=== PATIENT | female | born 1955 | race Caucasian/White ===

== ENCOUNTER 2016-10-24 07:24 | Emergency (ER) | payer OTHER ==
[~2016-10-24] VITALS: Ht 160 cm; Wt 64.7 kg
[2016-10-24 07:28] VITALS: BP 140/82; PULSE 81; RESP 20; TEMP 97.7; O2SAT 100
[2016-10-24 07:51] LABS: BLOOD, URINE NEG (NEG); GLUCOSE,URINE NEG (NEG); KETONE, URINE TRACE mg/dL (NEG); NITRITE,URINE NEG (NEG)
[2016-10-24 07:58] LABS: BACTERIA, URINE OCC /hpf; COMMENT (UR) CULT NOT INDICATED; CULTURE IF INDICATED CULT NOT INDICATED; METHOD OF COLLECTION CLEAN CATCH; MUCUS URINE FEW /lpf (OCC); URINE COLOR YELLOW (YELLW/STRAW); WBC, URINE 0-2 /hpf (0-5)
[2016-10-24] MEDS ORDERED: SODIUM CHLOR 0.9% 1000 ML INJ 1,000 ML IV SCH (07:58)
[2016-10-24] MEDS ORDERED: SODIUM CHLORIDE 0.9% FLUSH 5 ML FLUSH IVF PRN (08:00)
[2016-10-24] MEDS ORDERED: MORPHINE SULFATE 4 MG/ML INJ IV PUSH ONE (08:00)
[2016-10-24] MEDS ORDERED: ONDANSETRON HCL 4 MG/2 ML VIAL IVP ONE (08:00)
--- NOTE | 2016-10-24 08:09 | PD ---
HPI Chief Complaint: Flank/Kidney Pain Time Seen by Provider: 07:49 Travel History International Travel<30 days: No Contact w/Intl Traveler<30days: No Traveled to known affect area: No History of Present Illness HPI Patient is a 61-year-old female who presents to emergency room with complaints of right-sided flank pain for the past 2 days. Reports that she has been having intermittent pains to her right flank, reports that she woke this morning with severe pain to her right flank radiates her her groin. Patient reports that she felt as if she had a urinary tract infection but denies dysuria , hematuria, urinary urgency or frequency. Patient denies fevers or chills. Patient denies any trauma to her flank. Patient denies any history of any kidney stones in the past. Denies constipation or diarrhea. PFSH Past Medical History Medical History: Denies Significant Hx Influenza Vaccination: No ?: Not Past Surgical History Hysterectomy: Yes Family History Family History: Negative Social History Alcohol Use: Yes (RARE) Tobacco Use: No Substance Use: No Allergies-Medications (Allergen,Severity, Reaction): Coded Allergies: Erythromycin (Verified Adverse Reaction, Severe, NAUSEA, 10/24/16) Percocet (Verified Adverse Reaction, Severe, NAUSEA, 10/24/16) Reported Meds & Prescriptions Reported Meds & Active Scripts Active No Active Prescriptions or Reported Medications Review of Systems General / Constitutional: No: Fever Eyes: No: Visual changes HENT: No: Headaches Cardiovascular: No: Chest Pain or Discomfort Respiratory: No: Shortness of Breath Gastrointestinal: Positive: Nausea, Abdominal Pain, No: Vomiting, Diarrhea, Hematemesis, Hematochezia, Constipation Genitourinary: No: Urgency, Frequency, Dysuria, Hematuria, Discharge Musculoskeletal: No: Pain Skin: No Rash Neurologic: No: Weakness Psychiatric: No: Depression Endocrine: No: Polydipsia Hematologic/Lymphatic: No: Easy Bruising Physical Exam Narrative GENERAL: Mild distress, patient uncomfortable on exam SKIN: Warm and dry. HEAD: Atraumatic. Normocephalic. EYES: No injection or drainage. ENT: No nasal bleeding or discharge. Mucous membranes pink and moist. NECK: Trachea midline. No JVD. CARDIOVASCULAR: Regular rate and rhythm. No murmur appreciated. RESPIRATORY: No accessory muscle use. Clear to auscultation. Breath sounds equal bilaterally. GASTROINTESTINAL: Abdomen soft, non-tender, nondistended. Patient with right- sided flank pain MUSCULOSKELETAL: No obvious deformities. No clubbing. No cyanosis. No edema. NEUROLOGICAL: Awake and alert. Normal speech. PSYCHIATRIC: Appropriate mood and affect; insight and judgment normal. Data Data Last Documented VS Vital Signs Date Time Temp Pulse Resp B/P Pulse Ox O2 Delivery O2 Flow Rate FiO2 10/24/16 07:28 97.7 81 20 140/82 100 Orders Urinalysis - C+S If Indicated (10/24/16 07:42) Complete Blood Count With Diff (10/24/16 07:58) Comprehensive Metabolic Panel (10/24/16 07:58) Lipase (10/24/16 07:58) Prothrombin Time / Inr (Pt) (10/24/16 07:58) Act Partial Throm Time (Ptt) (10/24/16 07:58) Ct Abd/Pel W/O Iv Contrast (10/24/16 07:58) Iv Access Insert/Monitor (10/24/16 07:58) Morphine Inj (Morphine Inj) (10/24/16 08:00) Ondansetron Inj (Zofran Inj) (10/24/16 08:00) Sodium Chlor 0.9% 1000 Ml Inj (Ns 1000 M (10/24/16 07:58) Sodium Chloride 0.9% Flush (Ns Flush) (10/24/16 08:00) Ketorolac Inj (Toradol Inj) (10/24/16 09:00) Ceftriaxone Inj (Rocephin Inj) (10/24/16 09:30) Labs Laboratory Tests Test 10/24/16 10/24/16 07:45 08:05 Urine Collection Type CLEAN CATCH Urine Color YELLOW Urine Turbidity CLEAR Urine pH 6.0 Urine Specific [place] 1.023 Urine Protein TRACE mg/dL Urine Glucose (UA) NEG mg/dL Urine Ketones TRACE mg/dL Urine Occult Blood NEG Urine Nitrite NEG Urine Bilirubin NEG Urine Leukocyte Esterase NEG Urine WBC 0-2 /hpf Urine Squamous Epithelial 6-8 /hpf Cells Urine Bacteria OCC /hpf Urine Mucus FEW /lpf Microscopic Urinalysis Comment CULT NOT INDICATED Urine Collection Time 07:45 White Blood Count 13.5 TH/MM3 Red Blood Count 4.64 MIL/MM3 Hemoglobin 14.1 GM/DL Hematocrit 42.0 % Mean Corpuscular Volume 90.6 FL Mean Corpuscular Hemoglobin 30.5 PG Mean Corpuscular Hemoglobin 33.6 % Concent Red Cell Distribution Width 12.3 % Platelet Count 312 TH/MM3 Mean Platelet Volume 7.7 FL Neutrophils (%) (Auto) 82.4 % Lymphocytes (%) (Auto) 12.3 % Monocytes (%) (Auto) 4.7 % Eosinophils (%) (Auto) 0.3 % Basophils (%) (Auto) 0.3 % Neutrophils # (Auto) 11.2 TH/MM3 Lymphocytes # (Auto) 1.7 TH/MM3 Monocytes # (Auto) 0.6 TH/MM3 Eosinophils # (Auto) 0.0 TH/MM3 Basophils # (Auto) 0.0 TH/MM3 CBC Comment DIFF FINAL Differential Comment Prothrombin Time 10.8 SEC Prothromb Time International 1.0 RATIO Ratio Activated Partial 26.5 SEC Thromboplast Time Sodium Level 142 MEQ/L Potassium Level 3.4 MEQ/L Chloride Level 105 MEQ/L Carbon Dioxide Level 22.2 MEQ/L Anion Gap 15 MEQ/L Blood Urea Nitrogen 16 MG/DL Creatinine 0.95 MG/DL Estimat Glomerular Filtration 59 ML/MIN Rate Random Glucose 132 MG/DL Calcium Level 8.9 MG/DL Total Bilirubin 0.6 MG/DL Aspartate Amino Transf 27 U/L (AST/SGOT) Alanine Aminotransferase 33 U/L (ALT/SGPT) Alkaline Phosphatase 68 U/L Total Protein 7.8 GM/DL Albumin 3.8 GM/DL Lipase 115 U/L MDM Medical Decision Making Medical Screen Exam Complete: Yes Emergency Medical Condition: Yes Interpretation(s) Vital Signs Date Time Temp Pulse Resp B/P Pulse Ox O2 Delivery O2 Flow Rate FiO2 10/24/16 07:28 97.7 81 20 140/82 100 Differential Diagnosis Kidney stone, pyelonephritis, cystitis, muscle strain, appendicitis Narrative Course Patient is a 61-year-old female who presents to emergency room with complaints of right-sided flank pain for the past 2 days. Patient reports that flank pain has been intermittent in nature, reports that she woke up this morning with severe pain to her right flank pain to her groin. Reports nausea without any vomiting. Denies fevers or chills. Denies constipation or diarrhea. Denies dysuria, urinary urgency/frequency. Reports that she is having problems getting comfortable, reports that she feels as if she has a urinary tract infection but "I don't have any burning when urinate." Patient uncomfortable at bedside, patient with right-sided flank pain. Discussed with patient that I will place IV, will give IV fluids as well as antinausea medications and pain medications. She has tolerated morphine in the past. CBC, CMP, UA ordered. CT of abdomen and pelvis without contrast ordered for evaluation of possible kidney stone. Patient with right-sided kidney stone, I did give patient a copy of her radiology report. A urine strainer was given to her. Patient will strain her urine and bring her kidney stones were doctor's office. All labs and all studies were reviewed with patient in detail. Patient currently comfortable at this time. Will follow up with urologist and return to ER as needed. Signs and symptoms of when to return to emergency room includes reviewed with patient in detail. Patient thankful for care. Diagnosis Primary Impression: Kidney stone on right side Additional Impression: perinephric stranding Referrals: Titus Malagon MD Patient Instructions: General Instructions, Narcotic given in the ED Additional Instructions: Please strain your urine and bring your kidney stone to your urologist appointment Please call your urologist first thing when you leave the emergency room for earliest follow-up appointment Return to the emergency room if symptoms progress or worsen Please bring your discharge paperwork as well as copies of your studies to your doctor's appointment Return to ER as needed Med/Other Pt SpecificInfo: Prescription(s) given Scripts Levofloxacin (Levaquin)500 Mg Eid728 Mg PO DAILY 5 Days Ref 0 Prov:Greer Oglesby DO 10/24/16 Ibuprofen 600 Mg Tup404 Mg PO Q6H PRN (Pain/Inflammation) #40 TAB Ref 0 Prov:Greer Oglesby DO 10/24/16 Tamsulosin (Flomax)0.4 Mg Cap0.4 Mg PO HS #12 CAP Ref 0 Prov:Greer Oglesby DO 10/24/16 Acetaminophen-Codeine (Tylenol-Codeine #3)300-30 mg Tab1-2 Tab PO Q6H PRN (PAIN ) #20 TAB Ref 0 Prov:Greer Oglesby DO 10/24/16 Greer Oglesby DO Oct 24, 2016 08:09
[2016-10-24 08:21] LABS: AUTOMATED NEUTROPHIL # 11.2 TH/MM3 (1.8-7.7); BASOPHIL % 0.3 % (0.0-2.0); EOSINOPHIL % 0.3 % (0.0-4.0); LYMPH % 12.3 % (9.0-44.0); LYMPHOCYTE # 1.7 TH/MM3 (1.0-4.8); MEAN CELL VOLUME 90.6 FL (80.0-100.0); MEAN CORPUSCULAR HEMOGLOBIN 30.5 PG (27.0-34.0); MEAN CORPUSCULAR HGB CONC 33.6 % (32.0-36.0); MONO % 4.7 % (0.0-8.0); NEUT % 82.4 % (16.0-70.0); PLATELET COUNT 312 TH/MM3 (150-450); RED BLOOD COUNT 4.64 MIL/MM3 (4.00-5.30); RED CELL DISTRIBUTION WIDTH 12.3 % (11.6-17.2); WHITE BLOOD COUNT 13.5 TH/MM3 (4.0-11.0)
[2016-10-24 08:22] LABS: CHLORIDE 105 MEQ/L (98-107); HEMO FLAGS DIFF FINAL; POTASSIUM 3.4 MEQ/L (3.5-5.1); SODIUM (NA) 142 MEQ/L (136-145)
[2016-10-24 08:26] LABS: ANION GAP 15 MEQ/L (5-15); APTT (PATIENT) 26.5 SEC (24.3-30.1); BICARBONATE 22.2 MEQ/L (21.0-32.0); BLOOD UREA NITROGEN 16 MG/DL (7-18); PROTHROMBIN TIME - PATIENT 10.8 SEC (9.8-11.6)
[2016-10-24 08:29] LABS: ALT (GPT) 33 U/L (10-53); AST (GOT) 27 U/L (15-37); GLOMERULAR FILTRATION RATE 59 ML/MIN (>89)
[2016-10-24 08:30] LABS: TOTAL BILIRUBIN ADULT 0.6 MG/DL (0.2-1.0)
[2016-10-24 08:32] LABS: ALKALINE PHOSPHATASE 68 U/L (45-117)
[2016-10-24] MEDS ORDERED: KETOROLAC TROMETHAMINE 30 MG/ML (IVP) VIAL IVP ONE (09:00)
--- NOTE | 2016-10-24 09:01 | RADHPO ---
EXAM DATE/TIME: 10/24/2016 08:16 [facility] COMPARISON: No previous studies available for comparison. INDICATIONS : Right flank pain. Nausea and vomiting. ORAL CONTRAST: No oral contrast ingested. RADIATION DOSE: 10.01 CTDIvol (mGy) MEDICAL HISTORY : None SURGICAL HISTORY : Hysterectomy. ENCOUNTER: Initial ACUITY: 1 day PAIN SCALE: 8/10 LOCATION: Right flank TECHNIQUE: Volumetric scanning of the abdomen and pelvis was performed. Using automated exposure control and ad justment of the mA and/or kV according to patient size, radiation dose was kept as low as reasonably achievable to obtain optimal diagnostic quality images. FINDINGS: The lung bases are clear. Large apparent cyst is seen in the dome of the liver. Spleen is unremarka ble. Pancreas and adrenals appear normal. The left kidney is unremarkable. There is perinephric stranding about the right kidney with two small stones in the right kidney, larg est in the lower pole measuring 8 mm. There is a 4 mm calcification in the expected course of the left ureter at the left ureterovesical ju nction. There is pessary in place. The lack of intravenous contrast makes exclusion of polynephritis difficult. No other significant abnormalities appreciated. Review of bone windows reveals only degenerative changes. CONCLUSION: 1. Renal calculi on the right with perinephric stranding. 2. 3 mm calcification at the expected course of the right ureterovesical junction. 3. There are no calculi on the right. Bethel Becerra MD FACR on October 24, 2016 at 8:44 Board Certified Radiologist. This report was verified electronically.
[2016-10-24] MEDS ORDERED: IBUP-232 PO (09:28)
[2016-10-24] MEDS ORDERED: TYLETAB34 PO (09:28)
[2016-10-24] MEDS ORDERED: LEVA500T PO (09:28)
[2016-10-24] MEDS ORDERED: TAMS5CAP PO (09:28)
[2016-10-24] MEDS ORDERED: cefTRIAXone INJ 1,000 MG in SODIUM CHLORIDE 0.9% INJ 100 ML IV ONE (09:30)
[2016-10-24] MEDS ORDERED: TAMSULOSIN HCL 0.4 MG CAP PO ONE (09:30)
[2016-10-24] MEDS ORDERED: POTASSIUM CL 40 MEQ/30 ML LIQ UDC PO ONE (09:45)
[2016-10-24 10:30] VITALS: BP 122/84; PULSE 74; RESP 18; O2SAT 99
== END 2016-10-24 11:03 | disposition home or self-care (01) ==
LOC: PHED 07:24
DX: N20.0 Calculus of kidney (principal)
CPT/HCPCS: 74176; 80053; 81001; 83690; 85025; 85610; 85730; 96361; 96365; 96375; 99284; J0696; J1885; J2270; J2405; J7030

== ENCOUNTER → 2016-12-08 | Day surgery (SDC) | payer OTHER ==
[~2016-12-08] MED LIST: BUPIVACAINE HCL PF 0.75% 30 ML VIAL ONE; IBUP-232 PO; LACTATED RINGER'S 1,000 ML BAG IV ONE; LACTATED RINGER'S 1000 ML INJ 1,000 ML ONE; LEVA500T PO; LIDOCAINE 1.5%/EPINEPHrine 1:200,000 PF SOLN 30 ML AMP ONE; MIDAZOLAM HCL 5 MG/ML VIAL (1 ML) ONE; ONDANSETRON HCL 4 MG/2 ML VIAL IV PUSH ONE; PROPOFOL 500 MG/50 ML BTL IV ONE; TAMS5CAP PO; TYLETAB34 PO; ceFAZolin 2 GM PREMIX 50 ML ONE
--- NOTE | 2016-12-09 10:07 | MP ---
cc: AZEB BETHEA M.D. DATE OF SURGERY: 12/08/2016 PREOPERATIVE DIAGNOSIS: Right shoulder large full-thickness rotator cuff tear, superior labral tear, posterior labral tear, and subacromial compression. POSTOPERATIVE DIAGNOSIS 1. Right shoulder large full-thickness rotator cuff tear involving supraspinatus and infraspinatus with significant retraction. 2. Partial tear biceps tendon. 3. Superior labral tear 4. Posterior labral tear 5. Subacromial impingement with anterior acromial spur. PROCEDURE 1. Right shoulder arthroscopic rotator cuff repair. 2. Right shoulder arthroscopic extensive debridement biceps tendon and superior labrum and posterior labrum. 3. Right shoulder arthroscopic subacromial decompression. ANESTHESIA Interscalene block and general SURGEON Azeb Bethea MD ESTIMATED BLOOD LOSS Minimal. DRAIN: None. SPECIMEN None COMPLICATIONS None known IMPLANTS: Arthrex biocomposite, 4.75. Speed bridge implants. INDICATION Shnaeka Moser is a 61-year-old female with debilitating persistent right shoulder pain and MRI evidence of full-thickness tear as well as MRI evidence of abnormalities superior labrum tear and posterior labrum tear. She now presents for arthroscopic surgery. Risks, benefits were thoroughly discussed in detail informed consent was obtained. The merchandising assistant Neftali Florez is an advanced registered nurse practitioner and his skill set was medically necessary for the performance of the operation. The patient brought the operating room. She had interscalene block in the preop holding area. She has done her general anesthetic, lateral decubitus position with axillary roll in place right shoulder up the right shoulder prepped and draped in usual sterile fashion. Ten pounds traction was used, bony landmarks were drawn out. IV antibiotics were given. Time-out was completed, it should be noted that merchandising assistant is an advanced registered nurse practitioner who sub specialized in orthopedic surgeon. His skill set was medically necessary for the performance of the operation. PROCEDURE: We made a posterior portal and blunt trocar was used to reduce the cannula and we visualized the glenohumeral joint. The first photograph shows inferior labrum and the articular surfaces of the humeral head and glenoid which looked very good. The second photograph shows substantial tearing of the undersurface of the biceps tendon as well as unstable tearing of the superior labrum and the posterior superior labrum. The third photograph shows a large full-thickness rotator cuff tear. We proceeded with making a lateral based portal and bringing the shaver in and debriding the undersurface of the rotator cuff and fully inspecting this looked to be about 20% tear and the vast majority of the biceps tendon was intact. The superior labrum was trimmed down the posterior labrum trimmed down and smooth the cautery was used as well. We then proceeded into the subacromial space and prepared the footprint of the repair site. I identified anterior acromial spur and photographed this. I debrided the edge of the cuff and brought that back to stable tissue. The subacromial decompression including the anterior acromionectomy removing approximately 3 mm of bone off the anterior acromion and taking portion of the coracoacromial ligament. Follow-up photograph seen after repair was completed we then checked for the mobilization of the cuff and this appeared to be a reverse L configuration and therefore with good bleeding bone the posterior superior aspect the humeral head. We did a [id number] stitch within the infraspinatus and then we placed our posterior anchor and with this anchor we did additional stitch which pulled the cuff up to the bone then we passed our fiber tape through both layers of the cuff and placed our second anchor just posterior to the biceps tendon and then did the typical crisscross technique and assessed where we would be. There looked like there may have been a small dog ear over the rotator interval portion and so a second free stitch was placed there to be pulled out to the lateral anchor and we proceeded with completing our speed bridge crisscross technique and the overall repair looked excellent and the cuff tissue was pulled down to bleeding bone and then it was very solid repair. No further impingement identified multiple photographs shows final result. We had very good hemostasis. The arthroscopic equipment was removed. Close absorbable sutures and place Steri-Strips on the skin. Sterile dressing applied. Ultra sling applied. The patient was awoken return recovery room in stable condition. MD LAMAR Blanton/yumi /10:40 AM /9:50 AM
== END | disposition home or self-care (01) ==
LOC: ESDC 06:39
PROVIDERS: ATTEND Orthopaedic Surgery Sports Medicine
DX: M75.121 Complete rotator cuff tear or rupture of right shoulder, not specified as traumatic (principal); S43.431A Superior glenoid labrum lesion of right shoulder, initial encounter; M75.41 Impingement syndrome of right shoulder; S46.211A Strain of muscle, fascia and tendon of other parts of biceps, right arm, initial encounter
CPT/HCPCS: 01630; 01991; 29823; 29826; 29827; 64417; C1713; J0690; J2250; J2405; J7120